=== PATIENT | female | born 1945 | race Caucasian/White ===

== ENCOUNTER 2018-03-10 13:41 | Emergency (ER) | payer OTHER ==
--- OUTSIDE RECORDS SUMMARY | 2018-03-10 13:44 | XMS REPORT | Clinical Summary ---
:1945 Author Organization [facility] Address [address] [place] [address] Care Team Providers Name Role Phone Nivia Chandra Primary Care Provider Allergies Active Allergy Reactions Severity Noted Date Comments Ciprofloxacin 07/28/2016 Levofloxacin 07/28/2016 Current Medications Prescription Sig. Disp. Refills Start Date End Date Status SYNTHROID 100 mcg Take 100 mcg 06/30/2016 Active tablet by mouth daily. meloxicam (MOBIC) 05/14/2016 Active 7.5 mg tablet pantoprazole Take 40 mg by 06/19/2016 Active (PROTONIX) 40 MG EC mouth daily. tablet zolpidem (AMBIEN) 10 Take 10 mg by Active mg tablet mouth nightly as needed for sleep. BIMATOPROST (LUMIGAN Apply to eye. Active OPHT) BRIMONIDINE Apply to eye. Active TARTRATE/TIMOLOL (COMBIGAN OPHT) cyanocobalamin 2000 Take 2,000 Active MCG tablet mcg by mouth daily. cholecalciferol, Take 2,000 Active vitamin D3, (VITAMIN Units by D3) 2,000 unit mouth daily. capsule capsule amLODIPine (NORVASC) Take 1 tablet 90 tablet 3 07/08/2017 Active 10 mg tablet (10 mg total) 8 by mouth daily. LUMIGAN 0.01 % 07/02/2017 Active ophthalmic drops blood pressure test 1 Box 2 (two) 1 each 0 07/13/2017 Active kit-large kit times a day. sotalol (SOTALOL AF) Take 1 tablet 180 tablet 3 07/14/2017 Active 80 MG (80 mg total) 8 tabletIndications: by mouth 2 Atrial fibrillation, (two) times a unspecified type day. apixaban (ELIQUIS) 5 Take 1 tablet 180 tablet 3 07/14/2017 Active mg tablet (5 mg total) by mouth 2 (two) times a day. apixaban (ELIQUIS) 5 Take 1 tablet 180 tablet 3 07/15/2016 Discontinued mg tablet (5 mg total) 7 by mouth 2 (two) times a day. amLODIPine (NORVASC) Take 1 tablet 90 tablet 3 07/15/2016 Discontinued 10 mg tablet (10 mg total) 7 by mouth daily. atorvastatin Take 1 tablet 90 tablet 3 07/15/2016 (LIPITOR) 20 MG (20 mg total) 7 tablet by mouth daily. sotalol (SOTALOL AF) Take 1 tablet 180 tablet 3 07/16/2016 Discontinued 80 MG (80 mg total) 7 tabletIndications: by mouth 2 Atrial fibrillation, (two) times a unspecified type day. Active Problems Problem Noted Date Atrial fibrillation 07/28/2016 Encounters Date Type Specialty Care Team Description 11/23/2017 Refill Cardiology Cindi Buckley MA Med Refill 11/18/2017 Refill Cardiology Cindi Buckley MA Med Refill 11/17/2017 Refill Cardiology Cindi Buckley MA Med Refill 07/14/2017 Orders Only Cardiology Caesar Guy MA Atrial fibrillation, unspecified type 07/13/2017 Office Visit Cardiology Atilio Carbajal MD Rapid heart beat ( Primary Dx); Atrial fibrillation, unspecified type 07/08/2017 Refill Cardiology Cindi Buckley MA Med Refill after 03/09/2017 Family History Relation Name Status Comments Father Mother Social History Tobacco Use Types Packs/Day Years Used Date Never Smoker Smokeless Tobacco: Never Used Alcohol Use Drinks/Week oz/Week Comments No Sex Assigned at Date Recorded Not on file Last Filed Vital Signs Vital Sign Reading Time Taken Blood Pressure 130/63 07/13/2017 1:06 PM [facility] Pulse 60 07/13/2017 1:06 PM [facility] Temperature - - Respiratory Rate - - Oxygen Saturation - - Inhaled Oxygen Concentration - - Weight 86.6 kg (191 lb) 07/13/2017 1:06 PM [facility] Height 160 cm (5' 3") 07/13/2017 1:06 PM [facility] Body Mass Index 33.83 07/13/2017 1:06 PM [facility] Plan of Treatment Date Type Specialty Care Team Description 07/12/2018 Office Visit Cardiology Atilio Carbajal MD [address] [place] [address] Health Maintenance Due Date Last Done Comments BREAST CANCER SCREENING 1997 COLON CANCER SCREENING 1997 SHINGRIX VACCINE (#1) 1997 ZOSTER VACCINE 2007 PNEUMOCOCCAL POLYSACCHARIDE VACCINE AGE 65 AND OVER 2012 PNEUMOCOCCAL-13 2012 INFLUENZA VACCINE 02/23/2018 Results Not on fileafter 03/09/2017 Insurance Payer Benefit Plan / Group Subscriber ID Type Phone Address MEDICARE MEDICARE PART A AND B xxxxxxxxxx Medicare [place], [place] AETNA A[employer] INDEMNITY xxxxxxxxx Indemnity
[2018-03-10 14:55] LABS: Absolute Lymphocytes (CBC) 2.3 K/uL (0.7-4.9); Absolute Monocytes 0.6 K/uL (0.1-1.3); Absolute Neutrophil 4.1 K/uL (1.8-8.0); Basophils % 0.8 % (0-1.3); Eosinophils % 1.7 % (0-4.4); Hematocrit 41.3 % (36.0-45.0); Lymphocytes % 32.5 % (15.3-44.8); MCH 30.3 pg (27.0-35.0); MCV 89.1 fL (80-100); MPV 11.2 fL (7.6-11.3); Monocytes % 8.4 % (3.3-12.3); Protime INR 1.23; RBC Red Blood Cell Count 4.63 M/uL (3.86-4.86)
[2018-03-10 15:07] LABS: Magnesium 1.8 mg/dL (1.8-2.4); Potassium 3.6 mmol/L (3.5-5.1)
--- NOTE | 2018-03-10 15:47 | ER ---
Nurse's Notes [facility] Name: Suzy Palmer Age: 72 yrs Sex: Female : 1945 Arrival Date: 03/10/2018 Time: 13:43 Bed 16 Private MD: Jeferson Santos Diagnosis: Paroxysmal atrial fibrillation Presentation: 03/10 13:46 Presenting complaint: Patient states: i just dont feel right, dizzy, and my heartrate tw2 is irregular, and i feel palpitations. Transition of care: patient was not received from another setting of care. Onset of symptoms was March 10, 2018. Risk Assessment: Do you want to hurt yourself or someone else? Patient reports no desire to harm self or others. Initial Sepsis Screen: Does the patient meet any 2 criteria? No. Patient's initial sepsis screen is negative. Does the patient have a suspected source of infection? No. Patient's initial sepsis screen is negative. Care prior to arrival: None. 13:46 Method Of Arrival: Ambulatory tw2 13:55 Acuity: ENDY 2 hb Triage Assessment: 16:50 General: Appears in no apparent distress. Behavior is calm, cooperative. Pain: Denies iw pain. Neuro: Level of Consciousness is awake, alert, obeys commands, Oriented to person, place, time, situation, Moves all extremities. Full function. Cardiovascular: Patient's skin is warm and dry. Respiratory: Airway is patent Respiratory effort is even, unlabored, Respiratory pattern is regular, symmetrical. Historical: - Allergies: 13:51 Hydrocodone-Acetaminophen; tw2 - Home Meds: 13:51 Norvasc 10 mg Oral tab 1 tab once daily [Active]; Lipitor 20 mg Oral tab 1 tab once tw2 daily [Active]; Synthroid 100 mcg Oral tab 1 tab once daily [Active]; Protonix 40 mg Oral grps 1 packet once daily [Active]; Ambien 10 mg Oral tab 1 tab once daily [Active]; timolol maleate 0.5 % Opht solg 1 drop once daily [Active]; Lumigan 0.01 % ophthalmic drop [Active]; meloxicam 7.5 mg oral tab 1 tab once daily [Active]; sotalol 80 mg Oral tab 1 tab 2 times per day [Active]; Eliquis 5 mg oral tab 1 tab 2 times per day [Active]; alprazolam 0.25 mg Oral TbDL 1 tab 3 times per day [Active]; meclizine 25 mg Oral chew 1 tab once daily [Active]; - PSHx: 13:51 Sinus implants; Neck surgery; Knee replacement bilateral; Cholecystectomy; Tubal tw2 ligation; - Immunization history:: Adult Immunizations up to date. - Social history:: Smoking status: Patient/guardian denies using tobacco. - Ebola Screening: : Patient denies travel to an Ebola-affected area in the 21 days before illness onset. Screenin:25 Abuse screen: Denies threats or abuse. Denies injuries from another. Nutritional iw screening: No deficits noted. Tuberculosis screening: No symptoms or risk factors identified. Fall Risk IV access (20 points). Assessment: 15:24 Reassessment: Patient appears in no apparent distress at this time. Patient and/or iw family updated on plan of care and expected duration. Pain level reassessed. Patient is alert, oriented x 3, equal unlabored respirations, skin warm/dry/pink. pt HR down to 59 bpm, repeat EKG order by Dr. Byrd. Vital Signs: 13:47 BP 131 / 82; Pulse 142; Resp 17; Temp 98.0(O); Pulse Ox 98% on R/A; Weight 85.28 kg tw2 (R); Height 5 ft. 2 in. (157.48 cm) (R); Pain 0/10; 15:04 BP 113 / 63; Pulse 59; Resp 16; Pulse Ox 99% on R/A; Pain 0/10; iw 15:45 BP 110 / 69; Pulse 59; Resp 16 S; Pulse Ox 98% on R/A; Pain 0/10; iw 13:47 Body Mass Index 34.39 (85.28 kg, 157.48 cm) tw2 ED Course: 13:43 Patient arrived in ED. sb2 13:43 Jeferson Santos MD is Private Physician. sb2 13:47 Triage completed. tw2 13:48 Arm band placed on. tw2 14:02 Gabriel Byrd MD is Attending Physician. gs 14:17 EKG done, by forklift technician. reviewed by Gabriel Byrd MD. dt2 14:26 Daisha Mccurdy, RN is Primary Nurse. iw 14:38 Initial lab(s) drawn, by me, sent to lab. Inserted saline lock: 20 gauge in right dh3 antecubital area, using aseptic technique. Blood collected. 14:59 Urine collected: clean catch specimen, clear. 3 15:36 EKG done, by forklift technician. reviewed by Gabriel Byrd MD. dt2 15:46 Gabriel Byrd MD is Referral Physician. gs 16:10 No provider procedures requiring assistance completed. IV discontinued, intact, iw bleeding controlled, No redness/swelling at site. Pressure dressing applied. 16:50 Patient has correct armband on for positive identification. iw Administered Medications: No medications were administered Outcome: 15:47 Discharge ordered by MD. gs 16:10 Discharged to home ambulatory, with family. iw 16:10 Condition: good 16:10 Discharge instructions given to patient, family, Instructed on discharge instructions, follow up and referral plans. Demonstrated understanding of instructions, follow-up care. 16:12 Patient left the ED. iw Signatures: Daisha Mccurdy RN RN Rubina García RN RN Ammy Bustos RN RN 2 Clari Aranda 3 Gabriel Byrd MD MD Alessandra Reyes 2 Saskia Agudelo dt2 Corrections: (The following items were deleted from the chart) 13:55 13:46 Acuity: ENDY 3 tw2 hb
--- NOTE | 2018-03-10 15:47 | EDPHYS ---
Physician Documentation [facility] Name: Suzy Palmer Age: 72 yrs Sex: Female : 1945 Arrival Date: 03/10/2018 Time: 13:43 Bed 16 Private MD: Jeferson Santos ED Physician Gabriel Byrd HPI: 03/10 17:02 This 72 yrs old Female presents to ER via Ambulatory with complaints of gs Palpitations. 17:02 The patient presents with a history of irregular heart beat, heart racing. Context: The gs symptoms occur at rest. Onset: The symptoms/episode began/occurred acutely, just prior to arrival, 3 hour(s) ago. Duration: The patient or guardian reports a single episode, that is still ongoing, but improving. Modifying factors: The symptoms are aggravated by nothing. The symptoms are alleviated by nothing. Associated signs and symptoms: Pertinent positives: lightheadedness, Pertinent negatives: chest pain, SOB. Severity of symptoms: At their worst the symptoms were severe in the emergency department the symptoms have improved moderately. The patient has experienced similar episodes in the past, several times. Historical: - Allergies: 13:51 Hydrocodone-Acetaminophen; tw2 - Home Meds: 13:51 Norvasc 10 mg Oral tab 1 tab once daily [Active]; Lipitor 20 mg Oral tab 1 tab once tw2 daily [Active]; Synthroid 100 mcg Oral tab 1 tab once daily [Active]; Protonix 40 mg Oral grps 1 packet once daily [Active]; Ambien 10 mg Oral tab 1 tab once daily [Active]; timolol maleate 0.5 % Opht solg 1 drop once daily [Active]; Lumigan 0.01 % ophthalmic drop [Active]; meloxicam 7.5 mg oral tab 1 tab once daily [Active]; sotalol 80 mg Oral tab 1 tab 2 times per day [Active]; Eliquis 5 mg oral tab 1 tab 2 times per day [Active]; alprazolam 0.25 mg Oral TbDL 1 tab 3 times per day [Active]; meclizine 25 mg Oral chew 1 tab once daily [Active]; - PSHx: 13:51 Sinus implants; Neck surgery; Knee replacement bilateral; Cholecystectomy; Tubal tw2 ligation; - Immunization history:: Adult Immunizations up to date. - Social history:: Smoking status: Patient/guardian denies using tobacco. - Ebola Screening: : Patient denies travel to an Ebola-affected area in the 21 days before illness onset. ROS: 17:02 All other systems are negative. gs Exam: 17:02 Head/Face: Normocephalic, atraumatic. Eyes: Pupils equal round and reactive to light, gs extra-ocular motions intact. Lids and lashes normal. Conjunctiva and sclera are non-icteric and not injected. Cornea within normal limits. Periorbital areas with no swelling, redness, or edema. ENT: Nares patent. No nasal discharge, no septal abnormalities noted. Tympanic membranes are normal and external auditory canals are clear. Oropharynx with no redness, swelling, or masses, exudates, or evidence of obstruction, uvula midline. Mucous membranes moist. Neck: Trachea midline, no thyromegaly or masses palpated, and no cervical lymphadenopathy. Supple, full range of motion without nuchal rigidity, or vertebral point tenderness. No Meningismus. Chest/axilla: Normal chest wall appearance and motion. Nontender with no deformity. No lesions are appreciated. Respiratory: Lungs have equal breath sounds bilaterally, clear to auscultation and percussion. No rales, rhonchi or wheezes noted. No increased work of breathing, no retractions or nasal flaring. Abdomen/GI: Soft, non-tender, with normal bowel sounds. No distension or tympany. No guarding or rebound. No evidence of tenderness throughout. Back: No spinal tenderness. No costovertebral tenderness. Full range of motion. Skin: Warm, dry with normal turgor. Normal color with no rashes, no lesions, and no evidence of cellulitis. MS/ Extremity: Pulses equal, no cyanosis. Neurovascular intact. Full, normal range of motion. Neuro: Awake and alert, GCS 15, oriented to person, place, time, and situation. Cranial nerves II-XII grossly intact. Motor strength 5/5 in all extremities. Sensory grossly intact. Cerebellar exam normal. Normal gait. 17:02 Constitutional: The patient appears alert, awake. 17:02 Cardiovascular: Rate: tachycardic, Rhythm: irregularly irregular, Pulses: no pulse deficits are appreciated, Heart sounds: normal, Edema: is not appreciated. 17:02 ECG was reviewed by the Attending Physician. Vital Signs: 13:47 BP 131 / 82; Pulse 142; Resp 17; Temp 98.0(O); Pulse Ox 98% on R/A; Weight 85.28 kg tw2 (R); Height 5 ft. 2 in. (157.48 cm) (R); Pain 0/10; 15:04 BP 113 / 63; Pulse 59; Resp 16; Pulse Ox 99% on R/A; Pain 0/10; iw 15:45 BP 110 / 69; Pulse 59; Resp 16 S; Pulse Ox 98% on R/A; Pain 0/10; iw 13:47 Body Mass Index 34.39 (85.28 kg, 157.48 cm) tw2 MDM: 14:16 Patient medically screened. 17:02 Differential diagnosis: arrythmia, dehydration, stress disorder. Data reviewed: vital gs signs, nurses notes. 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 03/10 14:17 Order name: Basic Metabolic Panel; Complete Time: 15:32 03/10 14:17 Order name: CBC with Diff; Complete Time: 15:32 03/10 14:17 Order name: Magnesium; Complete Time: 15:32 03/10 14:17 Order name: PT-INR; Complete Time: 15:32 16 14:17 Order name: Troponin (emerg Dept Use Only); Complete Time: 15:32 16 15:50 Order name: Urine Dipstick--Ancillary (enter results) 03/10 14:02 Order name: EKG; Complete Time: 14:03 03/10 14:02 Order name: EKG - Nurse/Tech; Complete Time: 16:03 03/10 14:17 Order name: Cardiac monitoring; Complete Time: 14:45 03/10 14:17 Order name: IV Saline Lock; Complete Time: 14:45 03/10 14:17 Order name: Labs collected and sent; Complete Time: 14:45 03/10 14:59 Order name: EKG; Complete Time: 15:00 03/10 15:51 Order name: Urine Dipstick-Ancillary EDMS 03/10 14:17 Order name: O2 Per Protocol; Complete Time: 14:45 03/10 14:17 Order name: O2 Sat Monitoring; Complete Time: 14:45 03/10 14:17 Order name: Urine Dipstick-Ancillary (obtain specimen); Complete Time: 15:00 03/10 14:59 Order name: EKG - Nurse/Tech; Complete Time: 16:03 gs EC:02 Rate is 102 beats/min. Rhythm is irregularly irregular. QRS interval is normal. T waves gs are Flattened. Clinical impression: Atrial Fibrillation and rvr and ns st changes. Interpreted by me. Administered Medications: No medications were administered Disposition: 03/10/18 15:47 Discharged to Home. Impression: Paroxysmal atrial fibrillation. - Condition is Stable. - Discharge Instructions: Atrial Fibrillation. - Medication Reconciliation Form, Thank You Letter, Antibiotic Education, Prescription Opioid Use form. - Follow up: Gabriel Byrd MD; When: 2 - 3 days; Reason: Re-evaluation by your physician. Signatures: Dispatcher [employer] Daisha Smith RN RN iw Ammy Bustos RN RN tw2 Gabriel Byrd MD MD Corrections: (The following items were deleted from the chart) 16:12 15:47 03/10/2018 15:47 Discharged to Home. Impression: Paroxysmal atrial fibrillation. iw Condition is Stable. Forms are Medication Reconciliation Form, Thank You Letter, Antibiotic Education, Prescription Opioid Use. Follow up: Gabriel Byrd; When: 2 - 3 days; Reason: Re-evaluation by your physician.
[2018-03-10 16:18] VITALS: TEMP 98
[2018-03-10 16:20] VITALS: BP 110/69; O2SAT 98
[2018-03-10 16:50] LABS: Urine Blood NEGATIVE (NEG); Urine Glucose NEGATIVE (NEG); Urine Protein NEGATIVE (NEG); Urine Specific Gravity 1.015 (1.005-1.030)
--- NOTE | 2018-03-10 18:35 | EKG ---
Test Date: 2018-03-10 Test Time: 15:19:05 Market Research Coordinator: DANIELLA MEASUREMENT RESULTS: Intervals: Rate: 58 CT: 154 QRSD: 78 QT: 448 QTc: 439 [place]: P: -11 CT: 154 QRS: 14 T: 8 INTERPRETIVE STATEMENTS: Sinus bradycardia Nonspecific T wave abnormality Abnormal ECG Compared to ECG 03/10/2018 14:11:57 Atrial fibrillation no longer present T-wave abnormality still present Electronically Signed On 03-10-18 18:35:08 CDT by Michelet Howell
--- NOTE | 2018-03-10 18:36 | EKG ---
Test Date: 2018-03-10 Test Time: 14:11:57 Pharmaceutical Officer: DANIELLA MEASUREMENT RESULTS: Intervals: Rate: 102 [place]: QRSD: 82 QT: 368 QTc: 479 [place]: P: [place]: QRS: 21 T: -12 INTERPRETIVE STATEMENTS: Atrial fibrillation with rapid ventricular response Nonspecific T wave abnormality Abnormal ECG Compared to ECG 03/19/2013 07:53:35 T-wave abnormality now present Sinus bradycardia no longer present Electronically Signed On 03-10-18 18:35:39 CDT by Michelet Howell
== END 2018-03-10 16:12 | disposition home or self-care (01) ==
LOC: ER 13:41
DX: I48.0 Paroxysmal atrial fibrillation (principal); Z79.01 Long term (current) use of anticoagulants
CPT/HCPCS: 36415; 80048; 81003; 83735; 84484; 85025; 85610; 93005; 99284

== ENCOUNTER 2020-02-24 16:18 | Emergency (ER) | payer OTHER ==
--- OUTSIDE RECORDS SUMMARY | 2020-02-24 16:21 | XMS REPORT | Continuity of Care Document ---
:1945 Author Organization [facility] t Address [address] [place] [address] Care Team Providers Name Role Phone Prateek SANTOYO Audra Primary Care Physician Tori Carbajal MD Attending Clinician Payers Payer Name Policy Policy Number Effective Expiration Source Type Date Date MEDICAREMEDICARE PART xxxxxxxxxxx 2012 raza A AND 00:00:00 Confucianism Lksxekfjkevm71/1[place]2012 [place] x[place] 2000 [facility] 00:00:00 Confucianism INDEMNITYxxxxxxxxx1-PresentIndemnit y Problems Condition Condition Condition Status Onset Resolution Last Treating Co mments Source Name Details Category Date Date Treatment Clinician Date Pre-operat Pre-operat Disease Active Ema alejandre hill 04-18 [facility] clearance clearance 00:00: st 00 Essential Essential Disease Active Elias ston hypertensi hypertensi 8-31 [facility] on on 00:00: st 00 Palpitatio Palpitatio Disease Active 2018-0 [place] ns 8-31 [facility] 00:00: st 00 Abnormal Abnormal Disease Active 2017- [place] EKG EKG 03-25 [facility] 00:00: st 00 Atrial Atrial Disease Active [place] fibrillati fibrillati -03 Ak thodi on on 00:00: st Allergies, Adverse Reactions, Alerts Allergy Allergy Status Severity Reaction(s) Onset Inactive Treating Comm ents Source Name Type Date Date Clinician hydrocod DA Active SV 2020-0 [facility] one 12-21 [place] [facility] ciproflo DA Active U 2020-0 [facility] xacin 12-21 [place] 00:[facility] amitript DA Active SV 2020-0 [facility] yline 12-21 [place] 00:[facility] diphenhy DA Active SV 2020-0 [facility] dramine 12-21 [place] 00:[facility] levoflox DA Active U 2020-0 [facility] acin 12-21 [place] 00:[facility] ciproflo DA Active U 2020-0 [facility] xacin 5-22 Clear 00:00: Anaya 00 [facility] amitript DA Active SV 2020-0 [facility] yline 5-22 Clear 00:00: Anaya 00 [facility] diphenhy DA Active SV 2020-0 [facility] dramine 5-22 Clear 00:00: Anaya 00 [facility] levoflox DA Active U 2020-0 [facility] acin 5-22 Clear 00:00: Anaya 00 [facility] hydrocod DA Active SC 2018- [facility] one 023 [place] 00:00: [facility]ope [facility] ciproflo DA Active MO 2018-07 [facility] xacin 0-23 [place] 00:00: Orthope 00 [facility] amitript DA Active SV 2019 [facility] yline 0-23 [place] 00:00: Orthope 00 [facility] diphenhy DA Active MO 2019- [facility] dramine 0-23 [place] 00:00: Orthope 00 [facility] levoflox DA Active MO 2019- [facility] acin 0-23 [place] 00:00: Orthope 00 [facility] PPD SKIN DA Active SV 2019-0 [facility] TEST 04-24 Clear 00:00: Anaya 00 [facility] ciproflo DA Active MO 2019-0 [facility] xacin 9-30 [place] 00:00: Orthope 00 [facility] amitript DA Active SV [facility] yline 04-24 [place] 00:00: Orthope 00 [facility] diphenhy DA Active MO [facility] dramine 04-24 00:00: Orthope 00 [facility] levoflox DA Active MO [facility] acin 04-24 [place] 00:00: Orthope 00 [facility] hydrocod DA Active SV [facility] one 08-03 Clear 00:00: Anaya 00 [facility] Ciproflo Propensi Active [place] xacin ty to 07-28 [facility] adverse 00:00: st reaction 00 s to drug Levoflox Propensi Active [place] acin ty to 07-28 [facility] adverse 00:00: st reaction 00 s to drug T B TEST DA Active SC [facility] 8- Clear 00:00: Anaya 00 [facility] No Known DA Active U 2009-07 [facility] Intolera 09-22 [place] nces 00:00: [facility]ope 00 [facility] Social History Social Habit Start Date Stop Date Quantity Comments Source Sex Assigned At [facility] ethodist Alcohol intake 2018-07-12 2018-07-12 Current [facility] thodist 00:00:00 00:00:00 non-drinker of alcohol (finding) Smoking Status Start Date Stop Date Source Never smoker [facility] Medications Ordered Filled Start Stop Current Ordering Indication Dosage Frequency Signature Comments Components Source Medication Medication Date Date Medication? Clinician (SIG) Name Name BRENDA 5 2018-07 Yes TAKE 1 [place] mg tablet - TABLET (5 Metho di 00:00: MG TOTAL) st 00 BY MOUTH 2 (TWO) TIMES A DAY. sotalol 2018-07 Atrial 80mg Q.5D TAKE 1 [place] (BETAPACE) - 11-12 fibrillatio TABLET (80 [facility] 80 MG 00:00: 23:59 n, MG TOTAL) st tablet 00 :00 unspecified BY MOUTH 2 type (HCC) (TWO) TIMES A DAY. zolpidem 2017-07 Yes 10mg QD Take 10 mg Elias ston (AMBIEN) 10 2-18 by mouth Meth spenser mg tablet 14:01: nightly as st 30 needed for sleep. timolol 2017-07 Yes 1[drp] Q.5D 1 drop 2 [place] (TIMOPTIC) 2-18 (two) [facility] 0.25 % 14:01: times a st ophthalmic 30 day. solution meclizine 2017-07 Yes 12.5mg Take 12.5 [place] (ANTIVERT) 2-18 mg by [facility] 12.5 mg 14:01: mouth as st tablet 30 needed for dizziness. BIMATOPROST 2017-07 Yes Apply to Elijah person (LUMIGAN 2-18 eye. [facility] OPHT) 13:59: st 46 cyanocobala 2017-07 Yes 2000ug QD Take 2,000 [place] min 2000 2-18 mcg by [facility] MCG tablet 13:59: mouth st 46 daily. cholecalcif 2017-07 Yes 2000U QD Take 2,000 [place] genevieve, 2-18 Units by [facility] vitamin D3, 13:59: mouth st (VITAMIN 46 daily. D3) 2,000 unit capsule capsule atorvastati 2017-07 Yes 20mg QD Take 20 mg [place] n (LIPITOR) 2-18 by mouth Meth spenser 20 MG 13:59: daily. st tablet 46 Default OP ins ALPRAZolam 2017-07 Yes .25mg QD Take 0.25 [place] (XANAX) 2-18 mg by Method[facility] 0.25 MG 13:59: mouth st tablet 46 nightly as needed for anxiety. sotalol 2017-07- No Atrial 80mg Q.5D TAKE 1 [place] (BETAPACE) 08-20-13 fibrillatio TABLET (80 [facility] 80 MG 00:00: 00:00 n, MG TOTAL) st tablet 00 :00 unspecified BY MOUTH 2 type (HCC) (TWO) TIMES A DAY. ELIQUIS 5 2017-07- No TAKE 1 [place] mg tablet 08-20- TABLET (5 Meth spenser 00:00: 00:00 MG TOTAL) st 00 :00 BY MOUTH 2 (TWO) TIMES A DAY. amLODIPine 2017-07- No 10mg QD Take 1 [place] (NORVASC) 1-15 11-15 tablet (10 Met hodi 10 mg 00:00: 23:59 mg total) st tablet 00 :00 by mouth daily. losartan-hy 2017-07 Yes 1{tbl} QD Take 1 Ho [place] drochloroth 1-08 tablet by Met hodi iazide 00:00: mouth st (HYZAAR) 00 daily. 100-25 mg per tablet LUMIGAN 2016-07 Yes Reji 0.01 % 2-08 [facility] ophthalmic 00:00: st drops 00 SYNTHROID 2015-07 Yes 100ug QD Take 100 Elias ston 100 mcg 2-06 mcg by [facility] tablet 00:00: mouth st 00 daily. pantoprazol 2015-07 Yes 40mg QD Take 40 mg Reji perez 1-25 by mouth [facility] (PROTONIX) 00:00: daily. st 40 MG EC 00 tablet meloxicam 2015-07 Yes Reji (MOBIC) 7.5 0-20 [facility] mg tablet 00:00: st 00 Vital Signs Vital Name Observation Time Observation Value Comments Source Heart rate 2019-04-18 12:06:00 58 /min Reji Payne Body height 2019-04-18 12:06:00 160 cm Reji Payne Body weight 2019-04-18 12:06:00 85.276 kg Reji Payne BMI 2019-04-18 12:06:00 33.30 kg/m2 Reji Payne Procedures Procedure Date / Time Performed Performing Clinician Sourc e ECG 12-LEAD 2019-04-18 10:59:33 Atilio Carbajal odist Plan of Care Planned Activity Planned Date Details Comments Source Future Scheduled 2020-02-24 INFLUENZA VACCINE [place] [facility] Test 00:00:00 [code = INFLUENZA VACCINE] Future Scheduled 2012 65+ PNEUMOCOCCAL [facility] Test 00:00:00 VACCINE (1 of 2 - PCV13) [code = 65+ PNEUMOCOCCAL VACCINE (1 of 2 - PCV13)] Future Scheduled 1997 BREAST CANCER [facility] thodist Test 00:00:00 SCREENING [code = BREAST CANCER SCREENING] Future Scheduled 1997 COLONOSCOPY SCREENING [facility] Test 00:00:00 [code = COLONOSCOPY SCREENING] Future Scheduled 1997 SHINGLES VACCINES (#1) H jenn[facility] Test 00:00:00 [code = SHINGLES VACCINES (#1)] Results Test Description Test Time Test Comments Results Result Comments Source Novel Coronavirus 2019 Inhouse 2019-12-17 13:48:00 Test Item Value Reference Range Interpretation Comme nts Novel Coronavirus 2018 Inhouse (test code = COVNONPUI) Negative Negative Novel Coronavirus 2019 [id number] 13:47:00 Test Item Value Reference Range Interpretation Comments Novel Coronavirus 2018 Inhouse (test Negative Negative code = COVNONPUI) - MRI C-SPINE W/O [id number] 15:42:00 Patient Name: RUBIO ROBINS Unit No: [id number] EXAMS: CPT CODE: [id number] MRI C-SPINE W/O CONT 98910 DIAGNOSIS: 1. At C2-3 there is no evidence for disc bulge or herniation. Moderate left foraminal narrowing is seen without right-sided stenosis. Asymmetric left facet degeneration is present. The canal is mildly stenotic with an AP diameter of 12 mm. 2. At C3-4 there is endplate spur formation and 3 mm of right posterior lateral and foraminal disc bulging with moderate to marked right foraminal narrowing and marked left-sided stenosis. Bilateral facet degeneration is present asymmetrically greater on the left. The canal is stenotic with an AP diameter of 11 mm. 3. At C4-5 there is a mild degenerative spondylolisthesis without a focal disc abnormality. Moderate to marked left foraminal narrowing is present without right-sided stenosis. Bilateral facet degeneration is seen greater on the left. The canal is stenotic with an AP diameter of 10 mm. 4. At C5-6 the patient is status post discectomy without left foraminal narrowing. Mild right foraminal stenosis is seen. The canal is mildly stenotic with an AP diameter of 12 mm. 5. At C6-7 the patient is status post anterior discectomy and the canal is stenotic with an AP diameter of 11 mm. No foraminal narrowing is seen. 6. At C7-T1 there is no evidence for disc bulge or herniation. Mild left foraminal narrowing is seen without right-sided stenosis. The canal is stenotic with an AP diameter of 11 mm. COMMENT: COMPARISON: No prior exams available. Scans were performed in the sagittal and axial planes utilizing T1, gradient echo, T2 and inversion recovery images. Postsurgical changes are seen from C5 to C7. Endplate and disc degeneration is present from C3 to C5 and the remaining discs are desiccated. The cord appears normal in size and signal. at 1542 Reported and signed by: Willis Montaño MD CC: Nile Mcallister M.D. Technologist: Val Parker(R) Transcribed D/ (6012) Criselda [facility] NAME: RUBIO ROBINS [address] [facility] PHYS: Zafar Amador MD : 1945 AGE: 74 SEX: F [place] [address] LOC: Y.MRI PHONE #: [phone] EXAM DATE: 12/15/2019 STATUS: REG CLI FAX #: [phone] RAD #: [id number] D/C DT PAGE 1 Signed Report Patient Name: RUBIO ROBINS Unit No: [id number] EXAMS: CPT CODE: [id number] MRI C-SPINE W/O CONT 97022 <Continued> Orig Print D/T: S: 12/15/2019 (2967) [facility] NAME: RUBIO ROBINS [address] [facility] PHYS: Zafar Amador MD : 1945 AGE: 74 SEX: F [place] [address] LOC: Y.MRI PHONE #: [phone] EXAM DATE: 12/15/2019 STATUS: REG CLI FAX #: [phone] RAD #: [id number] D/C DT PAGE 2 Signed ReportCOMPREHENSIVE METABOLIC [id number] 13:09:00 Test Item Value Reference Range Interpretation Comments SODIUM (test code = 142 mmol/L 136-145 N NA) POTASSIUM (test code = 3.4 mmol/L 3.5-5.1 L K) CHLORIDE (test code = 103.0 mmol/L 98-107 N CL) CARBON DIOXIDE (test 27.7 mmol/L 21-32 N code = CO2) GLUCOSE (test code = 115 mg/dL 70-110 H GLU) BLOOD UREA NITROGEN 15 mg/dL 7-18 N (test code = BUN) GLOMERULAR FILTRATION 55.8 >60 Unit o f measure: RATE (test code = GFR) mL/mi n/1.73 [id number] Range:Healthy Adults >90 mL/min/1.73 m2 For Chronic Kidney Disease: St age II Mild Decrease in GFR 60-90 St age III Moderate Decrease in GFR 30-59 Stage IV Severe Decre ase in GFR 15- 29 Stage V Kidney Failure <15 CREATININE (test code 0.98 mg/dL 0.55-1.30 N = CREAT) TOTAL PROTEIN (test 7.3 g/dL 6.4-8.2 N code = PROT) ALBUMIN (test code = 3.4 g/dL 3.4-5.0 N ALB) GLOBULIN (test code = 3.9 g/dL 2.2-4.2 N GLOB) ALBUMIN/GLOBULIN RATIO 0.9 0.7-2.0 N (test code = A/G) CALCIUM (test code = 9.2 mg/dL 8.2-10.1 N CA) BILIRUBIN TOTAL (test 0.40 mg/dL 0.2-1.00 N code = BILT) SGOT/AST (test code = 14.0 U/L 15-37 L AST) SGPT/ALT (test code = 19.0 U/L 12-78 N Please note new ALT) normal range. ALKALINE PHOSPHATASE 103 U/L 46-116 N TOTAL (test code = ALKP) CBC W/AUTO [id number] 12:58:00 Test Item Value Reference Range Interpretation Comments WHITE BLOOD CELL (test code = WBC) 8.3 K/mm3 5.8-11.0 N RED BLOOD CELL (test code = RBC) 3.70 M/mm3 4.2-5.4 L HEMOGLOBIN (test code = HGB) 10.9 g/dL 12-16 L HEMATOCRIT (test code = HCT) 32.3 % 37-47 L MEAN CELL VOLUME (test code = MCV) 87 fL 80-98 N MEAN CELL HGB (test code = MCH) 29.5 pg 27-34 N MEAN CELL HGB CONCENTRATION (test 33.7 g/dL 30.8-34.1 N code = MCHC) RED CELL DISTRIBUTION WIDTH (test 12.0 % 11-16 N code = RDW) PLT (test code = PLT) 310 K/mm3 130-400 N MEAN PLATELET VOLUME (test code = 11.6 fL 8.9-12.1 N MPV) NEUTROPHIL % (test code = NT%) 69.6 % 45-70 N LYMPHOCYTE % (test code = LY%) 20.5 % 20-40 N MONOCYTE % (test code = MO%) 7.2 % 3-10 N EOSINOPHIL % (test code = EO%) 1.8 % 1-5 N BASOPHIL % (test code = BA%) 0.7 % 0.0-1.1 N NEUTROPHIL # (test code = NT#) 5.78 K/mm3 2.00-7.50 N LYMPHOCYTE # (test code = LY#) 1.70 K/mm3 1.50-4.00 N MONOCYTE # (test code = MO#) 0.60 K/mm3 0.2-0.8 N EOSINOPHIL # (test code = EO#) 0.15 K/mm3 0.04-0.4 N BASOPHIL # (test code = BA#) 0.06 K/mm3 0.02-0.10 N MANUAL DIFF REQUIRED (test code = NO MANUAL DIFF MDIFF) NUCLEATED RED BLOOD CELL (test 0 % 0-0 N code = NRBC) - MRI UP T W/O CONT [id number] 16:03:00 Patient Name: RUBIO ROBINS Unit No: [id number] EXAMS: CPT CODE: [id number] [place] JNT W/[place] [address] EXAM: MRI LEFT SHOULDER WITHOUT CONTRAST DIAGNOSIS: 1.Full-thickness recurrent tear anterior aspect distal supraspinatus tendon measures approximately 1.5 cm in AP diameter and is retracted approximately 2 cm. There is a large amount of complex fluid present within the subacromial and subdeltoid bursa. Mild atrophy of the supraspin atus muscle belly. 2. Biceps tenodesis. INDICATION: Left shoulder pain TECHNIQUE: Multiplanar, multisequence MRI is obtained of the left shoulder withoutcontrast. COMPARISON: None DISCUSSION: Osseous acromion outlet: The acromion is shallow type II, with mild lateral downsloping. Moderate AC joint arthrosis is noted. Rotator cuff: Full thickness supraspinatus tendon tear. Subscapularis, infraspinatus and teres minor tendons are intact. Biceps tendon and anchor: The biceps tenodesis. Labral and capsular structures: No detached labral tear is seen. No Bankart lesion is identified. Osseous structures: No evidence of fracture or avascular necrosis. at 1603 Reported and signed by: Jesusita Brown MD CC: Jeremi Golden MD Technologist: Val Parker(R) Transcribed D/ (1603) ErikaGVG [facility] NAME: RUBIO ROBINS [address] [facility] PHYS: Jeremi Gaytan MD : 1945 AGE: 74 SEX: F [place] [address] LOC: Y.MRI PHONE #: [phone] EXAMDATE: 12/11/2019 STATUS: REG CLI FAX #: [phone] RAD #: D/C DT PAGE 1 Signed Report Patient Name:RUBIO ROBINS Unit No: [id number] EXAMS: CPT CODE: [id number] [place] JNT W/[place] [address] <Continued> Orig Print D/T: S: 12/11/2019 (9311) [facility] NAME: RUBIO ROBINS[address] [facility] PHYS: Jeremi Gaytan MD : 1945 AGE: 74 SEX: F [place] [address] LOC: Y.MRI PHONE #: [phone] EXAM DATE: 12/11/2019 STATUS: REG [place] #: [phone] RAD #: D/C DT PAGE 2 Signed Report- MRI UP JNT W/O CONT [id number] 16:03:00 Patient Name: RUBIO ROBINS Unit No: [id number] EXAMS: CPT CODE: [id number] MRI [place] JNT W/[place] [address] EXAM: MRI LEFT SHOULDER WITHOUT CONTRAST DIAGNOSIS: 1.Full-thickness recurrent tear anterior aspect distal supraspinatus tendon measures approximately 1.5 cm in AP diameter and is retracted approximately 2 cm. There is a large amount of complex fluid present within the subacromial and subdeltoid bursa. Mild atrophy of the supraspinatus muscle belly. 2. Biceps tenodesis. INDICATION: Left shoulder pain TECHNIQUE: Multiplanar, multisequence MRI is obtained of the left shoulder withoutcontrast. COMPARISON: None DISCUSSION: Osseous acromion out let: The acromion is shallow type II, with mild lateral downsloping. Moderate AC joint arthrosis is noted. Rotator cuff: Full thickness supraspinatus tendon tear. Subscapularis, infraspinatus and teres minor tendons are intact. Biceps tendon and anchor: The biceps tenodesis. Labral and capsular structures: No detached labral tear is seen. No Bankart lesion is identified. Osseous structures: No evidence of fracture or avascular necrosis. at 1603 Reported and signed by: Jesusita Brown MD CC: Jeremi Golden MD Technologist: Val Parker(R) Transcribed D/ (6155) t.WILBERTOR.GVG [facility] NAME: RUBIO ROBINS [address] [facility] PHYS: Jeremi Gaytan MD : 1945 AGE: 74 SEX: F [place] [address] LOC: Y.MRI PHONE #: [phone] EXAMDATE: 12/11/2019 STATUS: DEP CLI FAX #: [phone] RAD #: [id number] D/C DT PAGE 1 Signed Report Patient Name:RUBIO ROBINS ANN Unit No: [id number] EXAMS: CPT CODE: [id number] [place] JNT W/[place] [address] <Continued> Orig Print D/T: S: 12/11/2019 (4029) [facility] NAME: RUBIO ROBINS[address] [facility] PHYS: Jeremi Gaytan MD : 1945 AGE: 74 SEX: F [place] [address] LOC: Y.MRI PHONE #: [phone] EXAM DATE: 12/11/2019 STATUS: DEP [place] #: [phone] RAD #: [id number] D/C DT PAGE 2 Signed ReportECG 12 [id number] 12:53:37 Test Item Value Reference Range Interpretation Comments Ventricular rate (test 56 code = 253) Atrial rate (test code 56 = 255) OK interval (test code 168 = 266) QRSD interval (test 84 code = 260) QT interval (test code 438 = 264) QTC interval (test code 422 = 265) P axis 1 (test code = 9 267) QRS axis 1 (test code = 58 268) T wave axis (test code 54 = 270) EKG impression (test Sinus code = 273) bradycardia-Otherwise normal ECG-In automated comparison with ECG of 12-JUL-2018 14:01,-No significant change was found- [facility]- MRI UP [facility] W/O CONT [id number] 15:41:00 Patient Name: RUBIO ROBINS Unit No: [id number] EXAMS: CPT CODE: [id number] MRI UP [facility] W/[place] [address] MRI OF THE LEFT SHOULDER DIAGNOSIS: 1.Full-thickness tear of the leading edge of the supraspinatus tendon with less than 1 cm of retraction. The tear measures 1.8 cm in AP diameter. There is associated tendinosis without muscular atrophy. 2. Low- grade partial thickness tearing of the infraspinatus tendon insertion without retraction or atrophy. 3. Subscapularis tendinosis without tearing, retraction or atrophy. COMMENT: COMPARISON: No prior exams available. Scans were performed in the paracoronal, parasagittal and axial planes utilizing T1 , spin density with fat saturation and T2-weighting with and without fat saturation. The biceps tendon is within normal limits in appearance. The remainder the rotator cuff is as described. The acromion is horizontal with AC joint hypertrophic and degenerative change. There is no evidence for a labral tear. Joint and bursal effusions are present. at 3986 Reported and signed by: Willis Montaño MD CC: Jeremi Golden MD Technologist: MATTHIEU URIAS MRI Transcribed D/ (3261) tLIT [facility] NAME: RUBIO ROBINS [address] [facility] PHYS: Jeremi Gaytan MD : 1945 AGE: 73 SEX: F [place] [address] LOC: Y.MRI PHONE #: [phone] EXAM DATE: 12/22/2018 STATUS: REG CLI FAX #: [phone] RAD #: [id number] D/C DT PAGE 1 Signed Report Patient Name: RUBIO ROBINS Unit No: [id number] EXAMS: CPT CODE: [id number] [place] JNT W/[place] [address] <Continued> Orig Print D/T: S: 12/22/2018 (1544) [facility] NAME: RUBIO ROBINS [address] [facility] PHYS: Jeremi Gaytan MD : 1945 AGE: 73 SEX: F [place] [address] LOC: Y.MRI PHONE #: [phone] EXAM DATE: 12/22/2018 STATUS: REG CLI FAX #: [phone] RAD #: [id number] D/C DT PAGE 2 Signed Report
--- OUTSIDE RECORDS SUMMARY | 2020-02-24 16:21 | XMS REPORT | Clinical Summary ---
:1945 Author Organization [facility] Address [address] [place] [address] Care Team Providers Name Role Phone Audra Chandra Primary Care Provider Allergies Active Allergy Reactions Severity Noted Date Comments Ciprofloxacin 07/28/2016 Levofloxacin 07/28/2016 Medications Medication Sig Dispensed Refills Start Date End Date Status SYNTHROID 100 mcg Take 100 mcg 0 06/30/2016 Active tablet by mouth daily. meloxicam (MOBIC) 7.5 0 05/14/2016 Active mg tablet pantoprazole Take 40 mg by 0 06/19/2016 Ac tive (PROTONIX) 40 MG EC mouth daily. tablet zolpidem (AMBIEN) 10 Take 10 mg by 0 Active mg tablet mouth nightly as needed for sleep. BIMATOPROST (LUMIGAN Apply to eye. 0 Active OPHT) cyanocobalamin 2000 Take 2,000 mcg 0 Active MCG tablet by mouth daily. cholecalciferol, Take 2,000 0 Ac tive vitamin D3, (VITAMIN Units by mouth D3) 2,000 unit capsule daily. capsule LUMIGAN 0.01 % 0 07/02/2017 Acti ve ophthalmic drops atorvastatin (LIPITOR) Take 20 mg by 0 Active 20 MG tablet mouth daily. Default OP ins timolol (TIMOPTIC) 1 drop 2 (two) 0 Active 0.25 % ophthalmic times a day. solution ALPRAZolam (XANAX) Take 0.25 mg 0 Active 0.25 MG tablet by mouth nightly as needed for anxiety. meclizine (ANTIVERT) Take 12.5 mg 0 Active 12.5 mg tablet by mouth as needed for dizziness. losartan-hydrochloroth Take 1 tablet 3 06/02/2018 Active iazide (HYZAAR) 100-25 by mouth mg per tablet daily. ELIQUIS 5 mg tablet TAKE 1 TABLET 180 tablet 3 06/07/2019 Active (5 MG TOTAL) BY MOUTH 2 (TWO) TIMES A DAY. sotalol (BETAPACE) 80 TAKE 1 TABLET 180 tablet 3 06/07/2019 Active MG tabletIndications: (80 MG TOTAL) Atrial fibrillation, BY MOUTH 2 unspecified type (HCC) (TWO) TIMES A DAY. amLODIPine (NORVASC) Take 1 tablet 90 tablet 3 06/09/201805/26 10 mg tablet (10 mg total) by mouth daily. Additional Information Patient taking differently: 5 mg oral daily, Reported on 07/12/2018 1:59 PM sotalol (BETAPACE) 80 TAKE 1 180 tablet 3 06/20/20182018 Discontinued MG tabletIndications: TABLET (80 (Reorder) Atrial fibrillation, MG TOTAL) unspecified type (HCC) BY MOUTH 2 (TWO) TIMES A DAY. ELIQUIS 5 mg tablet TAKE 1 180 tablet 3 06/20/2018 06/07/20 19 Discontinued TABLET (5 (Reorder) MG TOTAL) BY MOUTH 2 (TWO) TIMES A DAY. Active Problems Problem Noted Date Pre-operative clearance 04/18/2019 Essential hypertension 03/25/2018 Palpitations 03/25/2018 Abnormal EKG 03/25/2018 Atrial fibrillation 07/28/2016 Encounters Date Type Specialty Care Team Description 01/11/2020 Travel 01/03/2020 Travel 06/07/2019 Refill Cardiology Atilio Carbajal MD Med Refi ll 04/18/2019 Office Visit Cardiology Atilio Carbajal MD Paroxysm al atrial fibrillation (HCC) (Primary Dx); Pre-operative c learance; Essential hyper tension after 02/23/2019 Family History Relation Name Status Comments Father Mother Social History Tobacco Use Types Packs/Day Years Used Date Never Smoker Smokeless Tobacco: Never Used Alcohol Use Drinks/Week oz/Week Comments No Sex Assigned at Date Recorded Not on file Job Start Date Occupation Industry Not on file Not on file Not on file Travel History Travel Start Travel End No recent travel history available. Last Filed Vital Signs Vital Sign Reading Time Taken Comments Blood Pressure - - Pulse 58 04/18/2019 12:06 PM CDT Temperature - - Respiratory Rate - - Oxygen Saturation - - Inhaled Oxygen Concentration - - Weight 85.3 kg (188 lb) 04/18/2019 12:06 PM CDT Height 160 cm (5' 3") 04/18/2019 12:06 PM CDT Body Mass Index 33.3 04/18/2019 12:06 PM CDT Plan of Treatment Date Type Specialty Care Team Description 02/27/2020 Office Visit Cardiology Atilio Carbajal MD [address] [facility] [address] [place], [place] [address] [phone] Health Maintenance Due Date Last Done Comments BREAST CANCER SCREENING 1997 COLONOSCOPY SCREENING 1997 SHINGLES VACCINES (#1) 1997 65+ PNEUMOCOCCAL VACCINE (1 of 2 - PCV13) 2012 INFLUENZA VACCINE 02/24/2020 Procedures Procedure Name Priority Date/Time Associated Diagnosis Comme nts ECG 12-LEAD Routine 04/18/2019 10:59 AM Pre-operative Results for this CDT clearance procedure are i n the results section . after 02/23/2019 Results ECG 12 lead (04/18/2019 10:59 AM CDT) Pathologist Sig nature Ventricular rate 56 [facility] Atrial rate 56 [facility] MO interval 168 [facility] QRSD interval 84 [facility] QT interval 438 [facility] QTC interval 422 [facility] P axis 1 9 [facility] QRS axis 1 58 [facility] T wave axis 54 [facility] EKG impression Sinus [facility] bradycardia-Otherwise normal ECG-In automated comparison with ECG of 12-JUL-2018 14:01,-No significant change was found-Electronically Signed By Carlos TANG, [facility] ([id number]) on 04/18/2019 12:53:33 PM Specimen Narrative Performed At This result has an attachment that is no t available. 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
[2020-02-24 17:16] LABS: Absolute Lymphocytes (CBC) 2.1 K/uL (0.7-4.9); Basophils % 0.8 % (0-1.3); Hematocrit 36.3 % (36.0-45.0); Lymphocytes % 24.9 % (15.3-44.8); MPV 10.2 fL (7.6-11.3); RBC Red Blood Cell Count 4.22 M/uL (3.86-4.86)
[2020-02-24 17:18] LABS: Protime INR 1.43
[2020-02-24 17:39] LABS: ALT/SGPT 21 U/L (12-78); AST/SGOT 12 U/L (15-37); Albumin 3.7 g/dL (3.4-5.0); Alkaline Phosphatase 102 U/L (45-117); BUN Blood Urea Nitrogen 10 mg/dL (7-18); Bicarbonate 24 mmol/L (21-32); Bilirubin Direct 0.1 mg/dL (0-0.2); Bilirubin Total 0.4 mg/dL (0.2-1.0); Glucose Level 114 mg/dL (74-106); Magnesium 1.9 mg/dL (1.8-2.4); NT PRO-BNP 1546 pg/mL (<125); Potassium 3.8 mmol/L (3.5-5.1); Protein, Total 7.9 g/dL (6.4-8.2); Sodium Level 140 mmol/L (136-145); Troponin (Emerg Dept Use Only) < 0.02 ng/mL (0.0-0.045)
--- NOTE | 2020-02-24 17:54 | EDPHYS ---
Physician Documentation [facility] Name: Suzy Palmer Age: 74 yrs Sex: Female : 1945 Arrival Date: 02/24/2020 Time: 16:20 Bed 18 Private MD: Jeferson Santos ED Physician Jai Hale HPI: 02/23 16:50 This 74 yrs old Female presents to ER via Unassigned with complaints of Afib. kdr 16:50 The patient presents with a history of irregular heart beat, heart racing. Context: The kdr symptoms occur at rest. Onset: The symptoms/episode began/occurred this morning. Duration: The patient or guardian reports a single episode, that is now resolved. Modifying factors: The symptoms are aggravated by nothing. The symptoms are alleviated by The patient has been taking multiple doses of her Norvasc and Sotalol today in an attempt to fix her irregular HB. She denies CP or SOB. Associated signs and symptoms: The patient has no apparent associated signs or symptoms, Pertinent positives: Pertinent negatives: anxiety, chest pain, cough, fever, lightheadedness, nausea. Severity of symptoms: At their worst the symptoms were mild in the emergency department the symptoms have improved markedly, Pain is currently a 0 / 10. The patient has experienced similar episodes in the past, a few times. The patient has not recently seen a physician. Historical: - Allergies: 16:53 No Known Drug Allergies; ss - PMHx: 16:53 Hypothyroidism; Atrial Fib; Hypertension; ss - PSHx: 16:53 Sinus implants; Neck surgery; Knee replacement bilateral; Cholecystectomy; Tubal ss ligation; L shoulder; - Immunization history:: Adult Immunizations up to date. - Social history:: Smoking status: Patient denies any tobacco usage or history of. ROS: 16:50 Constitutional: Negative for fever, chills, and weight loss, Eyes: Negative for injury, kdr pain, redness, and discharge, ENT: Negative for injury, pain, and discharge, Neck: Negative for injury, pain, and swelling, Respiratory: Negative for shortness of breath, cough, wheezing, and pleuritic chest pain, Abdomen/GI: Negative for abdominal pain, nausea, vomiting, diarrhea, and constipation, Back: Negative for injury and pain, : Negative for injury, bleeding, discharge, and swelling, MS/Extremity: Negative for injury and deformity, Skin: Negative for injury, rash, and discoloration, Neuro: Negative for headache, weakness, numbness, tingling, and seizure activity. Psych: Negative for depression, anxiety, suicide ideation, homicidal ideation, and hallucinations, Allergy/Immunology: Negative for hives, rash, and allergies, Endocrine: Negative for neck swelling, polydipsia, polyuria, polyphagia, and marked weight changes, Hematologic/Lymphatic: Negative for swollen nodes, abnormal bleeding, and unusual bruising. 16:50 Cardiovascular: Positive for palpitations, Negative for chest pain, edema, orthopnea, paroxysmal nocturnal dyspnea. Exam: 16:50 Constitutional: This is a well developed, well nourished patient who is awake, alert, kdr and in no acute distress. Head/Face: Normocephalic, atraumatic. Eyes: Pupils equal round and reactive to light, extra-ocular motions intact. Lids and lashes normal. Conjunctiva and sclera are non-icteric and not injected. Cornea within normal limits. Periorbital areas with no swelling, redness, or edema. Neck: Trachea midline, no thyromegaly or masses palpated, and no cervical lymphadenopathy. Supple, full range of motion without nuchal rigidity, or vertebral point tenderness. No Meningismus. Chest/axilla: Normal chest wall appearance and motion. Nontender with no deformity. No lesions are appreciated. Cardiovascular: Regular rate and rhythm with a normal S1 and S2. No gallops, murmurs, or rubs. Normal PMI, no JVD. No pulse deficits. Respiratory: Lungs have equal breath sounds bilaterally, clear to auscultation and percussion. No rales, rhonchi or wheezes noted. No increased work of breathing, no retractions or nasal flaring. Abdomen/GI: Soft, non-tender, with normal bowel sounds. No distension or tympany. No guarding or rebound. No evidence of tenderness throughout. Back: No spinal tenderness. No costovertebral tenderness. Full range of motion. Skin: Warm, dry with normal turgor. Normal color with no rashes, no lesions, and no evidence of cellulitis. MS/ Extremity: Pulses equal, no cyanosis. Neurovascular intact. Full, normal range of motion. Neuro: Awake and alert, GCS 15, oriented to person, place, time, and situation. Cranial nerves II-XII grossly intact. Motor strength 5/5 in all extremities. Sensory grossly intact. Cerebellar exam normal. Normal gait. Psych: Awake, alert, with orientation to person, place and time. Behavior, mood, and affect are within normal limits. Vital Signs: 16:49 BP 113 / 83; Pulse 64; Resp 18; Temp 97.9(TE); Pulse Ox 100% on R/A; Weight 78.02 kg; ss Height 5 ft. 3 in. (160.02 cm); Pain 0/10; 16:49 Body Mass Index 30.47 (78.02 kg, 160.02 cm) ss MDM: 17:51 Data reviewed: vital signs, nurses notes, lab test result(s), EKG, radiologic studies. kdr Counseling: I had a detailed discussion with the patient and/or guardian regarding: the historical points, exam findings, and any diagnostic results supporting the discharge/admit diagnosis, lab results, radiology results, the need for outpatient follow up. Physician consultation: Jeferson Santos MD was called at 17:52, was contacted at 17:52, regarding consult, patient's condition, outpatient follow-up, and will see patient in office, would like medications started, Sotalol 80 mg 1.5 tabs BID. 17:54 Patient medically screened. [facility] 02/23 16:34 Order name: Basic Metabolic Panel; Complete Time: 17:41 [facility] 02/23 16:34 Order name: CBC with Diff; Complete Time: 17:27 [facility] 02/23 16:34 Order name: LFT's; Complete Time: 17:41 [facility] 02/23 16:34 Order name: Magnesium; Complete Time: 17:41 [facility] 02/23 16:34 Order name: NT PRO-BNP; Complete Time: 17:41 [facility] 02/23 16:34 Order name: PT-INR; Complete Time: 17:27 [facility] 02/23 16:34 Order name: Troponin (emerg Dept Use Only); Complete Time: 17:41 [facility] 02/23 16:34 Order name: XRAY Chest (1 view) [facility] 02/23 16:34 Order name: EKG; Complete Time: 16:35 [facility] 02/23 16:34 Order name: Cardiac monitoring; Complete Time: 17:12 [facility] 02/23 16:34 Order name: EKG - Nurse/Tech; Complete Time: 17:13 kdr 02/23 16:34 Order name: IV Saline Lock; Complete Time: 17:13 kdr 02/23 16:34 Order name: Labs collected and sent; Complete Time: 17:13 kdr 02/23 16:34 Order name: O2 Per Protocol; Complete Time: 17:13 kdr 02/23 16:34 Order name: O2 Sat Monitoring; Complete Time: 17:13 kdr Administered Medications: No medications were administered Disposition: 02/24/20 17:54 Discharged to Home. Impression: Atrial fibrillation and flutter - Resolved. - Condition is Stable. - Discharge Instructions: Atrial Fibrillation, Zkcn-sl-[id number]. - Prescriptions for sotalol 80 mg Oral tablet - take 1.5 tablet by ORAL route 2 times per day; 30 tablet. - Medication Reconciliation Form, Thank You Letter form. - Follow up: Jeferson Santos MD; When: 2 - 3 days; Reason: If symptoms return, Further diagnostic work-up, Recheck today's complaints, Continuance of care, Re-evaluation by your physician. - Problem is an acute exacerbation. - Symptoms are resolved. - Notes: Please make certain you contact Dr. Carbajal's office to expidite a follow-up appointment as soon as is possible. Signatures: Dispatcher [employer] EDMS Jai Hale MD MD [facility] Belinda Wilson RN RN Anita Howell RN RN Corrections: (The following items were deleted from the chart) 18:08 17:54 02/24/2020 17:54 Discharged to Home. Impression: Atrial fibrillation and flutter ah - Resolved. Condition is Stable. Forms are Medication Reconciliation Form, Thank You Letter, Antibiotic Education, Prescription Opioid Use. Follow up: Jeferson Santos; When: 2 - 3 days; Reason: If symptoms return, Further diagnostic work-up, Recheck today's complaints, Continuance of care, Re-evaluation by your physician. Problem is an acute exacerbation. Symptoms are resolved. kdr
--- NOTE | 2020-02-24 17:54 | ER ---
Nurse's Notes [facility] Name: Suzy Palmer Age: 74 yrs Sex: Female : 1945 Arrival Date: 02/24/2020 Time: 16:20 Bed 18 Private MD: Jeferson Santos Diagnosis: Atrial fibrillation and flutter-Resolved Presentation: 02/23 16:49 Chief complaint: Patient states: "My blood pressure was really high last night and ss today, my heart has been fibbing." Pt reports a history of AFIB and states that she has doubled up on her Sotalol today. Coronavirus screen: Client denies travel out of the [place] in the last 14 days. At this time, the client does not indicate any symptoms associated with coronavirus-19. Ebola Screen: Patient denies exposure to infectious person. Patient denies travel to an Ebola-affected area in the 21 days before illness onset. Initial Sepsis Screen: Does the patient meet any 2 criteria? No. Patient's initial sepsis screen is negative. Does the patient have a suspected source of infection? No. Patient's initial sepsis screen is negative. Risk Assessment: Do you want to hurt yourself or someone else? Patient reports no desire to harm self or others. Onset of symptoms was February 23, 2020. 16:49 Method Of Arrival: Ambulatory ss 16:49 Acuity: ENDY 3 ss Historical: - Allergies: 16:53 No Known Drug Allergies; ss - PMHx: 16:53 Hypothyroidism; Atrial Fib; Hypertension; ss - PSHx: 16:53 Sinus implants; Neck surgery; Knee replacement bilateral; Cholecystectomy; Tubal ss ligation; L shoulder; - Immunization history:: Adult Immunizations up to date. - Social history:: Smoking status: Patient denies any tobacco usage or history of. Screenin:01 Abuse screen: Denies threats or abuse. Nutritional screening: No deficits noted. Tuberculosis screening: No symptoms or risk factors identified. Fall Risk None identified. Assessment: 17:15 General: Appears in no apparent distress. Behavior is calm, cooperative, appropriate ah for age. Pain: Denies pain. Neuro: Level of Consciousness is awake, alert, obeys commands, Oriented to person, place, time, situation, Appropriate for age. Cardiovascular: Reports palpitations, since this morning Heart tones S1 S2 present Capillary refill < 3 seconds Patient's skin is warm and dry. Rhythm is atrial fibrillation. Respiratory: Airway is patent Respiratory effort is even, unlabored, Respiratory pattern is regular, symmetrical. EENT:. Derm: Skin is intact, is healthy with good turgor, Skin is dry. Vital Signs: 16:49 BP 113 / 83; Pulse 64; Resp 18; Temp 97.9(TE); Pulse Ox 100% on R/A; Weight 78.02 kg; Height 5 ft. 3 in. (160.02 cm); Pain 0/10; 16:49 Body Mass Index 30.47 (78.02 kg, 160.02 cm) ED Course: 16:20 Patient arrived in ED. mr 16:20 Jeferson Santos MD is Private Physician. mr 16:33 Jai Hale MD is Attending Physician. kdr 16:52 Triage completed. 16:53 Arm band placed on right wrist. 17:12 Anita Howell, RN is Primary Nurse. 17:13 Initial lab(s) drawn, by nc, sent to lab. Inserted saline lock: 22 gauge in left antecubital area, using aseptic technique. 17:36 XRAY Chest (1 view) In Process Unspecified. EDMS 17:53 Jeferson Santos MD is Referral Physician. kdr 18:01 Patient has correct armband on for positive identification. Placed in gown. Bed in low ah position. Call light in reach. Side rails up X 1. shelter monitor on. Pulse ox on. NIBP on. 18:08 No provider procedures requiring assistance completed. IV discontinued, intact, bleeding controlled, No redness/swelling at site. Pressure dressing applied. Administered Medications: No medications were administered Outcome: 17:54 Discharge ordered by . kdr 18:07 Discharged to home ambulatory. 18:07 Condition: good 18:07 Discharge instructions given to patient, Instructed on discharge instructions, follow up and referral plans. medication usage, Demonstrated understanding of instructions, follow-up care, medications, Prescriptions given X 1. 18:08 Patient left the ED. Signatures: Dispatcher [employer] EDNY Jai Hale MD MD [facility] [place] Belinda Wilson, ROSETTE DINERO Anita Howell RN RN
--- NOTE | 2020-02-24 18:22 | RAD REPORT ---
EXAM DESCRIPTION: RAD - Chest Single View - 02/24/2020 5:37 pm CLINICAL HISTORY: PALPITATIONS Chest pain. COMPARISON: No comparisons FINDINGS: Portable technique limits examination quality. The lungs are grossly clear. The heart is upper limit of normal in size. No displaced fractures. IMPRESSION: No acute intrathoracic process suspected.
[2020-02-24 18:24] VITALS: BP 113/83; TEMP 97.9; O2SAT 100
== END 2020-02-24 18:08 | disposition home or self-care (01) ==
LOC: ER 16:18
DX: R00.2 Palpitations (principal); I10 Essential (primary) hypertension
CPT/HCPCS: 36415; 71045; 80048; 80076; 83735; 83880; 84484; 85025; 85610; 93005; 99284